=== PATIENT | female | born 1935 | race Caucasian/White ===

== ENCOUNTER 2020-05-08 21:52 | Inpatient (IN) | payer MEDICARE, MEDICAID, SELFPAY ==
--- NOTE | ~2020-05-08 | NM_ITS ---
EXAMINATION: NM pulmonary perfusion DATE: 05/09/2020 12:02 INDICATION: Shortness of breath. TECHNIQUE: 5.5 mCi Tc-99m MAA was administered intravenously for perfusion images. Scintigraphic nestor ges of the chest were obtained. COMPARISON: Chest single view 05/08/20 FINDINGS: Perfusion images show large defects throughout left lower lobe. There are large and moderate sized de fects in right lower lobe. IMPRESSION: 1. Nondiagnostic (intermediate probability for pulmonary embolism). Reviewed, dictated and finalized at location A. LY CHAIN ASSISTANT
--- NOTE | ~2020-05-08 | XR_ITS ---
EXAMINATION: XR chest 1V portable INDICATION: Shortness of breath TECHNIQUE: Portable AP chest at 2311 hours COMPARISON: None available FINDINGS: Airspace opacities are present in the left mid and lower lung zones. A small left pleural e ffusion is suggested. There is no pneumothorax. There are minimal right basilar airspace opacities. T he heart size is normal. 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 IMPRESSION: 1. Airspace opacities of the lung bases and left midlung zone, consistent with atelectasis versus pne umonia. 2. Small left pleural effusion. Reviewed, dictated and finalized at location A. RITY INCIDENT HANDLER IMPRESSION: 1. Airspace opacities of the lung bases and left midlung zone, consistent with atelectasis versus pneumonia. 2. Small left pleural effusion.
[2020-05-08 21:57] VITALS: BP 115/47; PULSE 75; RESP 18; TEMP 36.6; O2SAT 94
--- NOTE | 2020-05-08 22:05 | ECG_ITS ---
Measurements Intervals [place] Rate: 76 P: -47 DE: 158 QRS: -2 QRSD: 110 T: 28 QT: 412 QTc: 464 Interpretive Statements SINUS OR ECTOPIC ATRIAL RHYTHM INCOMPLETE RIGHT BUNDLE BRANCH BLOCK BORDERLINE ECG Electronically Signed On 05-09-2020 7:01:22 MANUFACTURING MACHINE OPERATOR by Avery Hall D.O.
--- NOTE | 2020-05-08 22:29 | ED.SOB ---
HPI - SOB/Dyspnea General Chief Complaint: Shortness of Breath/Dyspnea Stated Complaint: sob,cp Time Seen by Provider: 05/08/20 22:10 Source: patient Mode of arrival: ambulatory Limitations: no limitations History of Present Illness HPI Narrative: Patient is an 84-year-old female complaining of shortness of breath that started today. Patient also complained of chest tightness earlier but now resolved. Patient denies abdominal pain, nausea, vomiting, diarrhea, fever or chills. Review of Systems Review of Systems: All systems reviewed & are unremarkable except as noted in HPI and below Constitutional: Constitutional: Denies body ache(s), Denies chills, Denies excessive sweating, Denies fatigue, Denies fever(s), Denies headache(s), Denies lethargy, Denies malaise, Denies weakness and Denies weight loss Eyes: Eyes: Denies blurry vision, Denies change in vision and Denies loss of vision ENT: Denies dizziness, Denies ear discharge, Denies headache(s), Denies lip swelling, Denies epistaxis, Denies nasal congestion, Denies neck pain, Denies throat swelling and Denies tongue swelling Cardiovascular: Cardiovascular: Denies chest pain, Denies chest pain at rest, Denies chest pain with activity, Denies diaphoresis, Denies rapid heart rate, Denies edema, Denies irregular heart rhythm, Denies lightheadedness, Denies palpitations, Denies dyspnea and Denies dyspnea on exertion Respiratory: Respiratory: Denies chest congestion, Denies cough and Denies hemoptysis Gastrointestinal: Gastrointestinal: Denies abdominal pain, Denies melena, Denies hematochezia, Denies diarrhea, Denies nausea, Denies vomiting and Denies hematemesis Musculoskeletal: Musculoskeletal: Denies abnormal gait, Denies deformity, Denies joint swelling, Denies limited range of motion, Denies neck pain and Denies numbness Neurologic: Denies Abnormal speech present, Denies abnormal gait, Denies confusion, Denies dizziness, Denies headache(s), Denies focal weakness, Denies loss of vision, Denies numbness, Denies Other visual disturbances, Denies Sensory deficit (Neuro) and Denies weakness Psychiatric: Psychiatric: Denies confusion, Denies depression, Denies auditory hallucinations, Denies homicidal ideation and Denies suicidal ideation Endocrine: Endocrine: Denies cold intolerance, Denies excessive sweating, Denies fatigue, Denies heat intolerance and Denies palpitations Hematologic/Lymphatic: Hematologic/Lymphatic: Denies easy bleeding and Denies easy bruising Allergic/Immunologic: Allergic/Immunologic: Denies lip swelling, Denies throat swelling and Denies tongue swelling Exam Const: General: cooperative, comfortable, well developed, alert and awake; No confusion Orientation/consciousness: oriented to person, oriented to place, oriented to time, patient oriented x3 and No confusion Limitations: no limitations Other: Frail, moderate distress HENMT: Head: normal to inspection, normocephalic and atraumatic Ears: hearing grossly normal bilaterally, TM normal on the right and TM normal on the left General nose exam: Normal external nose present, Normal nares present and No nasal discharge present Face and sinus: normal facial exam Mouth: Yes Normal oral and palatal mucosa present, Yes lip normal, Yes tongue normal and Yes oropharynx normal Throat: posterior oropharynx normal, tonsils normal and uvula midline Eyes: General: appearance normal, both eyes and all related structures Pupils: Equal, round and reactive pupils present EOM: EOMs intact bilaterally Neck: Neck: normal visual inspection, full ROM, no lymphadenopathy and no meningeal signs Chest: Chest palpation & inspection: normal inspection of the chest Resp: Effort & Inspection: able to speak in complete sentences and tachypneic (Mild) Auscultation: rales, no rhonchi, no wheezes and diminished lung sounds Other: Mild respiratory distress, bibasilar Rales Cardio: Rate: regular rate Rhythm: regular rhythm Heart sounds: Murmur he
[2020-05-08 22:54] LABS: Alveolar/Arterial O2 Gradient 43.8 mmHg; Base Excess ABG -2.8 mEq/l (+/-2.0); Carboxyhemoglobin 1.4 % THb (0-2.0); Device ROOM AIR; Fractional Inspired Oxygen 21 %; HCO3 ABG 20.9 mEq/l (22.0-26.0); Methemoglobin ABG 0.3 %THb (0-1.5); Modified Allen's Test Pass; Oxygen Content ABG 10.7 %vol (16.0-22.0); Oxygen Saturation ABG 94.5 % (95.0-100.0); Oxyhemoglobin 92.4 % THb (90.0-100.0); PCO2 ABG 31.5 mmHg (35.0-45.0); PO2 ABG 68.2 mmHg (80.0-100.0); PO2 FiO2 Ratio Arterial Blood 3.25 %; Reduced Hemoglobin 5.9 %THb (0-5.0); Site Drawn LEFT RADIAL; Total Hemoglobin 8.2 g/dL (12.0-18.0); pH ABG 7.439 (7.350-7.450)
[2020-05-08 23:02] VITALS: BP 124/85; PULSE 74; RESP 22; O2SAT 93
[2020-05-08] MEDS: FUROSEMIDE INJ 40 MG/4 ML VIAL 20 MG IV PUSH (23:02)
[2020-05-08 23:03] LABS: Basophils Absolute Auto 0.1 K/mm3 (0.0-0.1); Basophils Percent Auto 0.8 % (0.2-1.2); Hematocrit 26.1 % (37.0-47.0); Hemoglobin 7.9 g/dL (12.0-15.0); Immature Granulocyte Absolute 0.12 K/mm3 (0.00-0.031); Immature Granulocyte Percent A 1.9 % (0-0.5); Lymphocytes Absolute Auto 0.73 K/mm3 (0.9-3.2); Lymphocytes Percent Auto 11.4 % (18.3-44.2); Mean Corpuscular HGB Conc 30.3 g/dl (32-36); Mean Corpuscular Hemoglobin 29.7 pg (26-34); Mean Corpuscular Volume 98.1 fl (80-100); Mean Platelet Volume 9.2 fl (7.4-10.4); Monocytes Absolute Auto 0.7 K/mm3 (0.1-0.6); Monocytes Percent Auto 11.3 % (2.6-8.5); Neutrophils Absolute Auto 4.8 K/mm3 (1.3-6.7); Neutrophils Percent Auto 74.6 % (45.5-73.1); Platelet Count Result 149 k/mm3 (150-375); Red Blood Count 2.66 M/mm3 (4.2-5.4); Red Cell Distribution Width 14.6 % (11.5-14.5); White Blood Count 6.4 K/mm3 (4.5-10.0)
[2020-05-08 23:13] LABS: Prothrombin Time 13.9 Seconds (11.1-14.7)
[2020-05-08 23:14] LABS: Partial Thromboplastin Time 26.9 SECONDS (22.3-36.8)
[2020-05-08 23:19] LABS: Alanine Aminotransferase 11 U/L (4-35); Albumin Level 2.4 g/dL (3.5-5.1); Alkaline Phosphatase 52 U/L (38-126); Anion Gap 7 mmol/L (8-16); Aspartate Amino Transferase 21 U/L (14-36); Bilirubin,Total 0.2 mg/dL (0.2-1.3); Blood Urea Nitrogen 41 mg/dL (7-17); Calcium 8.8 mg/dL (8.4-10.2); Carbon Dioxide 21 mmol/L (22-30); Chloride 108 mmol/L (98-107); Estimated CRCL calculation 12 ml/min; Estimated Glomerular Filt Rate 14; Glucose 92 mg/dL (65-105); Lactic Acid Reflex 1.2 mmol/L (0.7-2.1); Potassium 4.5 mmol/L (3.4-5.0); Sodium 136 mmol/L (137-145)
[2020-05-08 23:43] LABS: NT Pro B Type Natriuretic Pept 10800 PG/ML (5-100); Troponin I 0.174 ng/mL (0.000-0.034)
[2020-05-09] VITALS (14 sets, daily range): BP systolic 120–151; BP diastolic 45–66; PULSE 55–80; RESP 16–20; TEMP 36.4–36.9; O2SAT 94–99; BMI 33.3
[2020-05-09] MEDS: ASPIRIN 81 MG CHEWABLE TABLET 324 MG PO (01:15)
[2020-05-09] MEDS: HEPARIN SOD/D5W 100 UNITS/ML 25,000 UNITS/250 ML BAG 8 UNITS IV CONT ×2 (01:51→22:49)
--- NOTE | 2020-05-09 01:53 | PM.IMHP ---
H&P: HPI History of Present Illness Date/Time: 05/09/20 01:53 Chief Complaint: shortness of breath since yesterday Narrative: This is a pleasant 84 year old female with known history of previous pulmonary embolism on chronic coumadin therapy and HTN who presented to the hospital [facility] with a complaint of shortness of breath that started yesterday as well as a brief episode of left sided chest pain. She states her chest discomfort lasted about 20 seconds in duration. She has severe chronic lower extremity swelling which has not worsened recently. She denies any known history of heart failure. She denies any fever, chills, coughing, sore throat, wheezing, palpitations, abdominal pain, dysuria, hematuria, diarrhea or rectal bleeding. She believes she has been taking her coumadin as prescribed. [facility] found to have a subtherapeutic INR of 1.0. Her troponin was mildly elevated at 0.174. CXR demonstrated airspace opacities of the lung bases and left midlung zone and a small left pleural effusion. She was treated with IV antibiotics, lasix, and anticoagulated with IV heparin. Cardiology was consulted by ER provider. No other complaints tonight. Review of Systems Review of Systems: All systems reviewed & are unremarkable except as noted in HPI and below PMFSH Past Medical History Medical History (Updated 05/09/20 @ 05:44 by Simón Prado MD) Chronic anticoagulation H/O: HTN (hypertension) Pulmonary embolism Surgical History Surgical History (Updated 05/09/20 @ 02:06 by Simón Prado MD) History of cholecystectomy Family History Family History (Updated 05/09/20 @ 05:41 by Simón Prado MD) Other Heart disease Social History Social History Smoking status: Never smoker Alcohol intake: never Substance use: never Spiritual care concerns: No Meds Home Medications and Allergies Home Medications Medication Instructions Recorded Confirmed Type alprazolam 0.5 mg PO Q12H PRN 05/09/20 05/09/20 History amlodipine 10 mg PO DAILY 05/09/20 05/09/20 History cholecalciferol (vitamin D3) 25 mcg PO DAILY 05/09/20 05/09/20 History docusate sodium 100 mg PO BID 05/09/20 05/09/20 History doxazosin 4 mg PO HS 05/09/20 05/09/20 History furosemide [Lasix] 40 mg PO DAILY 05/09/20 05/09/20 History hydrochlorothiazide 50 mg PO TID 05/09/20 05/09/20 History hydrocodone-acetaminophen 1 tablet PO Q8H PRN 05/09/20 05/09/20 History hydroxychloroquine 200 mg PO BID 05/09/20 05/09/20 History leflunomide 10 mg PO DAILY 05/09/20 05/09/20 History lidocaine [Lidoderm] 3 patch TOPICAL DAILY 05/09/20 05/09/20 History melatonin 5 mg PO HS PRN 05/09/20 05/09/20 History polysaccharide iron complex 150 mg PO DAILY 05/09/20 05/09/20 History [Polysaccharide Iron] sevelamer carbonate 800 mg PO TIDWM 05/09/20 05/09/20 History Allergies Allergy/AdvReac Type Severity Reaction Status Date / Time morphine AdvReac Unknown Verified 05/09/20 01:06 Vital Signs Vital Signs - 24 hr 05/08/20 21:57 05/08/20 23:02 05/09/20 01:08 Temperature 36.6 C Pulse Rate 75 74 70 Respiratory Rate 18 22 H 18 Blood Pressure 115/47 L 124/85 141/49 H Pulse Oximetry 94 93 95 Exam Const: General: cooperative, alert, awake and ill appearing chronically Nutritional Appearance: obese morbidly obese Orientation/consciousness: patient oriented x3 HENMT: Head: normal to inspection General nose exam: Normal external nose present Face and sinus: normal facial exam Mouth: Yes Normal oral and palatal mucosa present and Yes oropharynx normal Eyes: Pupils: Equal, round and reactive pupils present EOM: EOMs intact bilaterally Neck: Neck: supple and no JVD Thyroid: thyroid normal Lymphatic: lymphadenopathy not noted Resp: Effort & Inspection: normal respiratory effort Auscultation: crackles bilateral Cardio: Rate: regular rate Rhythm: regular rhythm He
--- NOTE | 2020-05-09 02:13 | ECHO_ITS ---
Patient Info Name: Hallie Cooper Age: 84 years : 1935 Gender: Female Ht: 64 in Wt: 169 lbs BSA: 1.88 m2 HR: 60 bpm BP: 151 / 58 mmHg Heart Rhythm: Sinus Rhythm Technical Quality: Good Exam Date: 05/09/2020 8:37 AM Exam Location: [facility] Pulmonary Patient Status: Inpatient Admit Date: 05/09/2020 Staff Ordering Physician: Simón Prado MD Coal Yard Supervisor: Seymour Meyers, JONATHAN, RT Attending Provider: Simón Prado MD Referring Physician: Johan RUBIO; Exam Type: CA echo doppler color flow Study Info Indications R07.89 - Other chest pain Complete two-dimensional, color flow and Doppler transthoracic echocardiogram is performed. Strain analysis performed. Summary 1. Complete two-dimensional, color flow and Doppler transthoracic echocardiogram is performed. 2. Normal left ventricular size with mild concentric hypertrophy. There is good systolic function of all segments with an estimated ejection fraction of 65-70%. Grade 2 diastolic dysfunction is present. Global longitudinal strain is normal at-20%. 3. Left atrial chamber dimension is moderately enlarged. 4. There is severe aortic valve stenosis with a peak velocity of 4 cm/s, mean gradient of 37 mmHg, and aortic valve area of 0.7 - 0.8 cm2. AVAI is 0.4-0.5 c2/m2. Severely calcified aortic valve. 5. There is moderate somewhat eccentric mitral valve regurgitation. 6. There is mild aortic atherosclerosis. 7. Normal sinus rhythm. Left Ventricle Left ventricular chamber dimension is normal. Left ventricular systolic function is normal, estimated at 65-70%. There is no increased left ventricular wall thickness. Left ventricular septal wall motion is normal. The left ventricular diastolic function is grade II diastolic dysfunction. Global longitudinal strain is normal at 20 %. Right Ventricle Right ventricular chamber dimension is normal. Right ventricular systolic function is normal. Left Atria Left atrial chamber dimension is moderately enlarged. Right Atria Right atrial chamber dimension is normal. Aortic Valve The aortic valve is trileaflet. There is no aortic valve sclerosis. There is severe aortic valve stenosis with a peak velocity of 4 cm/s, mean gradient of 37 mmHg, and aortic valve area of 0.7 - 0.8 cm2. AVAI is 0.4-0.5 c2/m2. Severely calcified aortic valve. There is no aortic valve regurgitation. There is severe aortic valve calcification. Pulmonic Valve The pulmonic valve is normal. There is no pulmonic valve stenosis. There is no pulmonic regurgitation. Mitral Valve The mitral valve has calcified annulus. There is no mitral valve stenosis. There is moderate somewhat eccentric mitral valve regurgitation. Tricuspid Valve The tricuspid valve leaflets are normal. There is no significant tricuspid valve stenosis. There is no tricuspid valve regurgitation. No pulmonary hypertension, estimated pulmonary arterial systolic pressure is Empty. Pericardium/Pleural The pericardium appears normal. There is no pericardial effusion. Inferior Vena Cava Dilated inferior vena cava with <50% collapse upon inspiration consistent with Empty right atrial pressure, Empty. Aorta The aortic root size at the sinus of Valsalva is normal. The prox ascending aorta size is normal. There is mild aortic atherosclerosis. Left Ventricular Outflow Tract Name Value Normal
[2020-05-09 03:15] LABS: Troponin I 0.175 ng/mL (0.000-0.034)
[2020-05-09 03:29] LABS: Add Urine Microscopic? YES; Appearance Urine Turbid (Clear); Bacteria Urine 1+ /hpf; Bilirubin Urine Negative (Negative); Blood Urine 1+ (Negative); Color Urine Yellow (Yellow); Glucose Urine UA Negative (Negative); Ketones Urine Negative (Negative); Leukocyte Esterase Ur 3+ LEU/UL (Negative); Nitrate Urine Negative (Negative); Protein Urine 1+ mg/dL (Negative); RBC Urine 21-50 /hpf (0-2); Specific Grav Ur 1.009 (1.001-1.035); Squamous Epithelial Cell Urine Occasional /hpf (Few); Urobilinogen Urine Negative mg/dL (<2.0); WBC Urine >75 /hpf
[2020-05-09 05:07] LABS: Anion Gap 1 mmol/L (8-16); Blood Urea Nitrogen 41 mg/dL (7-17); Calcium 8.8 mg/dL (8.4-10.2); Carbon Dioxide 25 mmol/L (22-30); Chloride 109 mmol/L (98-107); Estimated CRCL calculation 15 ml/min; Estimated Glomerular Filt Rate 15; Glucose 83 mg/dL (65-105); Magnesium 1.8 mg/dL (1.6-2.3); Potassium 4.5 mmol/L (3.4-5.0); Sodium 135 mmol/L (137-145)
[2020-05-09 05:23] LABS: Troponin I 0.176 ng/mL (0.000-0.034)
[2020-05-09] MEDS: HYDROcodone/acetaminophen (*CRX) 5-325 MG TABLET 1 TAB PO ×3 (05:30→21:47)
--- NOTE | 2020-05-09 05:45 | ECG_ITS ---
Measurements Intervals [place] Rate: 60 P: -81 [place]: 187 QRS: 5 QRSD: 114 T: 22 QT: 483 QTc: 484 Interpretive Statements SINUS OR ECTOPIC ATRIAL RHYTHM INCOMPLETE RIGHT BUNDLE BRANCH BLOCK BORDERLINE ECG Electronically Signed On 05-09-2020 10:19:02 KETTLE GIRL by Avery Hall D.O.
[2020-05-09] MEDS: DOCUSATE SODIUM 100 MG CAPSULE PO ×2 (08:14→17:32)
[2020-05-09] MEDS: amLODIPine BESYLATE 5 MG TABLET 10 MG PO (08:14)
[2020-05-09] MEDS: CHOLECALCIFEROL 1,000 UNITS TABLET 1000 UNITS PO (08:14)
[2020-05-09] MEDS: FUROSEMIDE INJ 40 MG/4 ML VIAL IV PUSH ×2 (08:15→17:32)
[2020-05-09 08:30] LABS: Partial Thromboplastin Time 58.7 SECONDS (22.3-36.8)
[2020-05-09] MEDS: HEPARIN SODIUM 5,000 UNITS/ML VIAL 2500 UNITS IV PUSH (08:37)
--- NOTE | 2020-05-09 08:39 | PM.CNCAR ---
Assessment and Plan Assessment and plan (1) Acute diastolic CHF (congestive heart failure): Code(s): I50.31 - Acute diastolic (congestive) heart failure Status: Acute Assessment and Plan: Patient has acute CHF due to diastolic dysfunction, fluid retention from chronic kidney disease and probably also severe aortic stenosis. History of CHF and was hospitalized in March 2020 at [facility]. IV Lasix 40 mg b.i.d. Close follow-up of renal function The ultimate solution for her heart failure may be treatment of her aortic stenosis, but that would likely put her on dialysis. Discussed briefly with the patient and the patient's son. Since she has expressed that she does not want any procedures and is a DNR we will not proceed down that path at this time. (2) Chest pain: Qualifiers: Chest pain type: unspecified Qualified Code(s): R07.9 - Chest pain, unspecified Code(s): R07.9 - Chest pain, unspecified Status: Acute Assessment and Plan: Apparently patient has been transient chest pain which she cannot recall. EKG shows no ischemic changes. Troponins are flat, consistent with chronic kidney disease and CHF not with ACS. No further workup of chest pain indicated (3) Aortic stenosis: Code(s): I35.0 - Nonrheumatic aortic (valve) stenosis Status: Acute Assessment and Plan: History of moderate aortic stenosis when seen at [facility] although our preliminary echo report here shows more significant aortic stenosis, probably severe. Final report pending. (4) Chronic kidney disease: Code(s): N18.9 - Chronic kidney disease, unspecified Status: Acute Assessment and Plan: Chronic kidney disease, stage IV. Creatinine is at baseline (was running about 3.0 -3.1 at [facility]. 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 Daily BMP (5) Elevated troponin: Code(s): R77.8 - Other specified abnormalities of plasma proteins Status: Acute Assessment and Plan: Elevated troponin but flat curve, consistent with a troponin spill due to her CHF and chronic kidney disease, no ACS. 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 Will DC her heparin drip and provide her with Lovenox for DVT prophylaxis during her stay. (7) Anemia: Code(s): D64.9 - Anemia, unspecified Status: Acute Assessment and Plan: Anemia, at baseline, secondary to chronic kidney disease (8) H/O: HTN (hypertension): Code(s): Z86.79 - Personal history of other diseases of the circulatory system Status: Chronic Assessment and Plan: Mildly elevated blood pressure noted on therapy (9) DNR (do not resuscitate) discussion: Code(s): Z71.89 - Other specified counseling Status: Acute Assessment and Plan: The patient has a signed order for DNR status from her care home. She confirms that she does not want resuscitation. She also says she does not want any procedures and prefers no surgeries. The patient's son, Karthikkim, confirms that she is a DNR. He also says she does not want to be put on dialysis. She had an EGD done a few months ago and she does not want to have anymore procedures such as an EGD done in the future. Thus I will continue her DNR status. History of Present Illness History of Present Illness Consult date/time: 05/09/20 08:39 Requesting p
[2020-05-09 09:03] LABS: Troponin I 0.177 ng/mL (0.000-0.034)
[2020-05-09] MEDS: hydrALAZINE HCL 50 MG TABLET PO ×2 (12:37→17:32)
--- NOTE | 2020-05-09 13:32 | PM.IMPN ---
Progress Note: A&P Assessment and Plan (1) Acute respiratory failure with hypoxia: Code(s): J96.01 - Acute respiratory failure with hypoxia Status: Acute Assessment and Plan: Patient's acute respiratory failure appears to be secondary to acute heart failure exacerbation. Rule out possible left lower lung pneumonia versus pleural effusion. Patient has been started on IV antibiotics, deescalate when appropriate. Continue Lasix therapy. Monitor fluid status closely. Check TSH reflex T4, check echocardiogram. we will also check a V/Q scan as the patient may have a recurrent pulmonary embolism given that she is subtherapeutic. Continuous pulse oximetry. Supplemental oxygen as needed. 05/09/20 13:32 84-year-old female original residential was sent to emergency department with a complaint of chest pain and shortness of breath, history of pulmonary emboli chronically on Coumadin however upon arrival her INR is subtherapeutic to 1, patient started on heparin to bridge, a V/Q scan was done showed intermediate probability of pulmonary emboli, patient remains clinically stable, patient also had elevated tropes, patient was seen by cut tobacco bulker and suspect patient has CHF secondary to aortic stenosis, patient does not wish to have any procedure done including cardiac catheterization to further evaluate, cut tobacco bulker recommending maximum medical management, will continue to monitor and further recommendation to follow will have a PT OT evaluate the patient (2) Subtherapeutic anticoagulation: Code(s): Z51.81 - Encounter for therapeutic drug level monitoring; Z79.01 - equipment operator intermodal yard (current) use of anticoagulants Status: Acute Assessment and Plan: Continue IV heparin. Monitor PT INR. Continue Coumadin therapy and adjust accordingly. (3) Chest pain: Qualifiers: Chest pain type: unspecified Qualified Code(s): R07.9 - Chest pain, unspecified Code(s): R07.9 - Chest pain, unspecified Status: Acute Assessment and Plan: One brief episode of chest pain likely is not cardiac in origin. Cardiology has been consulted because she also had an elevated troponin. telemetry, monitor for chest pain, Recheck EKG. Continue cardiology recommendations. (4) Elevated troponin: Code(s): R77.8 - Other specified abnormalities of plasma proteins Status: Acute Assessment and Plan: Troponin leak may be secondary to acute coronary syndrome, acute renal failure, or heart failure. Trend troponin. Monitor for chest pain. Cardiology has been consulted by ER provider. Appreciate cardiology input. (5) Renal failure: Qualifiers: Renal failure chronicity: unspecified chronicity Qualified Code(s): N19 - Unspecified kidney failure Code(s): N19 - Unspecified kidney failure Status: Acute Assessment and Plan: May be acute versus chronic. May be secondary to hypoperfusion. Monitor renal function, avoid nephrotoxin agents. Renally dose medications. Monitor urine output. Consider Nephrology consultation in a.m.. (6) Normocytic anemia: Code(s): D64.9 - Anemia, unspecified Status: Acute Assessment and Plan: May be acute versus chronic anemia. No signs of acute blood loss. Monitor H&H, transfuse p.r.n.. (7) Thrombocytopenia: Code(s): D69.6 - Thrombocytopenia, unspecified Status: Acute Assessment and Plan: May be acute versus chronic. Monitor platelets, transfuse p.r.n.. (8) H/O: HTN (hypertension): Code(s): Z86.79 - Personal history of other diseases of the circulatory system Status: Chronic Assessment and Plan: Monitor blood pressure. Continue home amlodipine. Subjective Date/time seen: 05/09/20 13:32 84-year-old female original residential was sent to emergency department with a complaint of chest pain and shortness of breath, history of pulmonary emboli chronically on Coumadin however upon ar
[2020-05-09] MEDS: HYDROXYCHLOROQUINE SULFATE 200 MG TABLET PO (17:32)
[2020-05-09] MEDS: SEVELAMER CARBONATE 800 MG TABLET PO (17:33)
[2020-05-09] MEDS: POLYSACCHARIDE IRON COMPLEX 150 MG CAPSULE PO (17:33)
[2020-05-09] MEDS: ALPRAZolam (*CRX) 0.5 MG TABLET PO (17:52)
--- NOTE | 2020-05-09 17:54 | ECG_ITS ---
Measurements Intervals [place] Rate: 58 P: ID: 0 QRS: 2 QRSD: 113 T: 16 QT: 474 QTc: 468 Interpretive Statements ECTOPIC ATRIAL BRADYCARDIA ATRIAL PREMATURE COMPLEX INCOMPLETE RIGHT BUNDLE BRANCH BLOCK BORDERLINE R WAVE PROGRESSION, ANTERIOR LEADS ABNORMAL ECG Electronically Signed On 05-10-2020 7:09:42 THERAPEUTIC PROGRAM WORKER by Avery Hall D.O.
--- NOTE | 2020-05-09 18:07 | PC.NURSE ---
Pt complained of shortness of breath after eating dinner. Pt was given 40mg IVP of Lasix as scheduled. About 5 minutes later patient called out stating I'm having chest pain. It hurts really bad. It feels achy and stabbing, right here in the middle. Pt given [place] and Xanax. Notified cancer center director of patient's condition. Suggested obtain 12 lead EKG. EKG shows AFib with slow ventricular response, possible anterlateral myocardial infarction, probably old. Pt stated pain is feeling better. Notified Dr. Butcher of situation and EKG readings as well as current patient status. No new orders at this time. continue to monitor. Notify if patient has any increasing chest pain with EKG changes.
[2020-05-09] MEDS: DOXAZOSIN MESYLATE 4 MG TABLET PO (19:50)
[2020-05-09] MEDS: MELATONIN 5 MG TABLET PO (19:50)
[2020-05-09] MEDS: ACETAMINOPHEN 325 MG TABLET 650 MG PO (19:50)
[2020-05-09 21:31] LABS: Partial Thromboplastin Time 84.3 SECONDS (22.3-36.8)
[2020-05-10] VITALS (8 sets, daily range): BP systolic 102–130; BP diastolic 43–64; PULSE 52–58; RESP 16–20; TEMP 36–36.9; O2SAT 96–100
[2020-05-10] MEDS: HYDROcodone/acetaminophen (*CRX) 5-325 MG TABLET 1 TAB PO ×2 (04:46→16:26)
[2020-05-10 05:19] LABS: Basophils Absolute Auto 0.1 K/mm3 (0.0-0.1); Basophils Percent Auto 1.1 % (0.2-1.2); Hematocrit 24.2 % (37.0-47.0); Hemoglobin 7.3 g/dL (12.0-15.0); Immature Granulocyte Absolute 0.21 K/mm3 (0.00-0.031); Immature Granulocyte Percent A 4.4 % (0-0.5); Lymphocytes Absolute Auto 1.15 K/mm3 (0.9-3.2); Lymphocytes Percent Auto 24.2 % (18.3-44.2); Mean Corpuscular HGB Conc 30.2 g/dl (32-36); Mean Corpuscular Volume 99.6 fl (80-100); Mean Platelet Volume 10.2 fl (7.4-10.4); Monocytes Absolute Auto 0.8 K/mm3 (0.1-0.6); Neutrophils Absolute Auto 2.6 K/mm3 (1.3-6.7); Neutrophils Percent Auto 54.3 % (45.5-73.1); Platelet Count Result 141 k/mm3 (150-375); Red Blood Count 2.43 M/mm3 (4.2-5.4); Red Cell Distribution Width 14.5 % (11.5-14.5); White Blood Count 4.8 K/mm3 (4.5-10.0)
[2020-05-10 05:32] LABS: INR 1.1; Prothrombin Time 14.6 Seconds (11.1-14.7)
[2020-05-10 05:34] LABS: Partial Thromboplastin Time 84.5 SECONDS (22.3-36.8)
[2020-05-10 05:35] LABS: Anion Gap 1 mmol/L (8-16); Blood Urea Nitrogen 46 mg/dL (7-17); Calcium 8.7 mg/dL (8.4-10.2); Carbon Dioxide 24 mmol/L (22-30); Chloride 109 mmol/L (98-107); Estimated CRCL calculation 15 ml/min; Estimated Glomerular Filt Rate 14; Glucose 76 mg/dL (65-105); Potassium 4.6 mmol/L (3.4-5.0); Sodium 134 mmol/L (137-145)
[2020-05-10] MEDS: hydrALAZINE HCL 50 MG TABLET PO ×2 (08:04→12:55)
[2020-05-10] MEDS: CHOLECALCIFEROL 1,000 UNITS TABLET 1000 UNITS PO (08:04)
[2020-05-10] MEDS: amLODIPine BESYLATE 5 MG TABLET 10 MG PO (08:04)
[2020-05-10] MEDS: POLYSACCHARIDE IRON COMPLEX 150 MG CAPSULE PO ×2 (08:04→16:27)
[2020-05-10] MEDS: DOCUSATE SODIUM 100 MG CAPSULE PO ×2 (08:04→16:26)
[2020-05-10] MEDS: HYDROXYCHLOROQUINE SULFATE 200 MG TABLET PO ×2 (08:04→16:26)
[2020-05-10] MEDS: SEVELAMER CARBONATE 800 MG TABLET PO ×3 (08:04→16:27)
[2020-05-10] MEDS: FUROSEMIDE INJ 40 MG/4 ML VIAL IV PUSH ×2 (08:04→16:26)
[2020-05-10] MEDS: LIDOCAINE 5% PATCH 3 PATCH TOPICAL (08:05)
--- NOTE | 2020-05-10 14:26 | PM.IMPN ---
Progress Note: A&P Assessment and Plan (1) Acute respiratory failure with hypoxia: Code(s): J96.01 - Acute respiratory failure with hypoxia Status: Acute Assessment and Plan: 05/10/20 14:26 Patient's acute respiratory failure appears to be secondary to acute heart failure exacerbation. Rule out possible left lower lung pneumonia versus pleural effusion. Patient has been started on IV antibiotics, deescalate when appropriate. Continue Lasix therapy. Monitor fluid status closely. Check TSH reflex T4, check echocardiogram. we will also check a V/Q scan as the patient may have a recurrent pulmonary embolism given that she is subtherapeutic. Continuous pulse oximetry. Supplemental oxygen as needed. 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 however upon arrival her INR is subtherapeutic to 1, patient started on heparin to bridge, a V/Q scan was done showed intermediate probability of pulmonary emboli, patient remains clinically stable, patient also had elevated tropes, patient was seen by enrichment teacher and suspect patient has CHF secondary to aortic stenosis, patient does not wish to have any procedure done including cardiac catheterization to further evaluate, enrichment teacher recommending maximum medical management, will continue to monitor and further recommendation to follow will have a PT OT evaluate the patient, 05/10 84-year-old female with history of pulmonary emboli on warfarin however presented with a complaint of chest pain and shortness of breath her INR was subtherapeutic at 1, patient is placed on heparin, will switch her over to either Eliquis or Xarelto before discharging, patient with complaint of chest an elevated tropes seen by enrichment teacher suspect her symptoms are stemming from aortic stenosis, patient does not want any invasive procedures including cardiac catheterization, will continue to monitor the patient had PT OT evaluate and further recommendation to follow. (2) Subtherapeutic anticoagulation: Code(s): Z51.81 - Encounter for therapeutic drug level monitoring; Z79.01 - [facility] (current) use of anticoagulants Status: Acute Assessment and Plan: Continue IV heparin. Monitor PT INR. Continue Coumadin therapy and adjust accordingly. (3) Chest pain: Qualifiers: Chest pain type: unspecified Qualified Code(s): R07.9 - Chest pain, unspecified Code(s): R07.9 - Chest pain, unspecified Status: Acute Assessment and Plan: One brief episode of chest pain likely is not cardiac in origin. Cardiology has been consulted because she also had an elevated troponin. telemetry, monitor for chest pain, Recheck EKG. Continue cardiology recommendations. (4) Elevated troponin: Code(s): R77.8 - Other specified abnormalities of plasma proteins Status: Acute Assessment and Plan: Troponin leak may be secondary to acute coronary syndrome, acute renal failure, or heart failure. Trend troponin. Monitor for chest pain. Cardiology has been consulted by ER provider. Appreciate cardiology input. (5) Renal failure: Qualifiers: Renal failure chronicity: unspecified chronicity Qualified Code(s): N19 - Unspecified kidney failure Code(s): N19 - Unspecified kidney failure Status: Acute Assessment and Plan: May be acute versus chronic. May be secondary to hypoperfusion. Monitor renal function, avoid nephrotoxin agents. Renally dose medications. Monitor urine output. Consider Nephrology consultation in a.m.. (6) Normocytic anemia: Code(s): D64.9 - Anemia, unspecified Status: Acute Assessment and Plan: May be acute versus chronic anemia. No signs of acute blood loss. Monitor H&H, transfuse p.r.n.. (7) Thrombocytopenia: Code(s): D69.6 - Thrombocytopen
--- NOTE | 2020-05-10 17:35 | PC.NURSE ---
Patient downgraded to medical status, report given to KIKE Anton. Transferred patient to room 255 at 1730 via bed with oxygen on.
--- NOTE | 2020-05-10 18:14 | PM.PNCARD ---
Progress Note: A&P Assessment and Plan (1) Acute diastolic CHF (congestive heart failure): Code(s): I50.31 - Acute diastolic (congestive) heart failure Status: Acute Assessment and Plan: Patient has acute CHF due to diastolic dysfunction, fluid retention from chronic kidney disease and severe aortic stenosis. History of CHF and was hospitalized in March [address] [facility]. IV Lasix 40 mg b.i.d. Edema has improved and she is diuresing with stable renal function so far. Close follow-up of renal function The ultimate solution for her heart failure may be treatment of her aortic stenosis with TAVR, but that would likely put her on dialysis. Discussed with the patient and yesterday with the patient's son. Since she has expressed that she does not want any procedures and is a DNR we will not proceed down that path at this time. However she has progressive diseases and if she can get to this episode of CHF will have relapses, ultimately terminal. Palliative care consult? (2) Chest pain: Qualifiers: Chest pain type: unspecified Qualified Code(s): R07.9 - Chest pain, unspecified Code(s): R07.9 - Chest pain, unspecified Status: Acute Assessment and Plan: Apparently patient has been transient chest pain which she cannot recall. EKG shows no ischemic changes. Troponins are Mildly elevated but flat, consistent with chronic kidney disease and CHF not with ACS. No further workup of chest pain indicated (3) Aortic stenosis: Code(s): I35.0 - Nonrheumatic aortic (valve) stenosis Status: Acute Assessment and Plan: Severe aortic stenosis. Patient has said she does not want any more procedures and does not to be on dialysis. (4) Chronic kidney disease: Code(s): N18.9 - Chronic kidney disease, unspecified Status: Acute Assessment and Plan: Chronic kidney disease, stage IV. Creatinine is at baseline (was running about 3.0 -3.[address] [facility]. 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 So far renal function is stable. 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 V/Q scan was indeterminate. I recommend discontinuing her heparin drip and provide her with Lovenox for DVT prophylaxis during her stay. (6) Anemia: Code(s): D64.9 - Anemia, unspecified Status: Acute Assessment and Plan: Anemia, at baseline, secondary to chronic kidney disease . Somewhat worse on heparin drip. (7) H/O: HTN (hypertension): Code(s): Z86.79 - Personal history of other diseases of the circulatory system Status: Chronic Assessment and Plan: Mildly elevated blood pressure noted on therapy Subjective Date/time seen: 05/10/20 18:14 Interval history: Follow-up for acute diastolic heart failure, severe aortic stenosis. Stage 5 chronic kidney disease. DNR. Date of service 05/10/2020: Breathing is better but still has SOB with mild exertion. Modest diuresis. Down To 1.5 L nasal cannula. Hematocrit also down to 24. Remains on heparin drip. Echo showed EF 65-70%, and severe aortic stenosis with the valve area of 0.7-0.8 cm2 and a mean gradient of 37 mmHg. Review of Systems Constitutional: Constitutional: Reports fatigue and Reports lethargy ENT: Denies epistaxis Cardiovascular: Cardiovascular: Denies chest pain, Reports leg edema and Denies palpitations Respiratory: Respiratory: Reports dyspnea and Reports dyspnea on exertion Gastrointestinal: Gastrointestinal: Denies hem
[2020-05-10] MEDS: MELATONIN 5 MG TABLET PO (20:21)
[2020-05-10] MEDS: DOXAZOSIN MESYLATE 4 MG TABLET PO (20:21)
[2020-05-11] VITALS (7 sets, daily range): BP systolic 110–149; BP diastolic 42–66; PULSE 55–96; RESP 16–18; TEMP 36.3–36.4; O2SAT 94–99
[2020-05-11] MEDS: HYDROcodone/acetaminophen (*CRX) 5-325 MG TABLET 1 TAB PO ×2 (02:11→17:16)
[2020-05-11] MEDS: HEPARIN SOD/D5W 100 UNITS/ML 25,000 UNITS/250 ML BAG 8 UNITS IV CONT (05:58)
[2020-05-11 06:17] LABS: Hematocrit 23.8 % (37.0-47.0); Hemoglobin 7.3 g/dL (12.0-15.0); Mean Corpuscular HGB Conc 30.7 g/dl (32-36); Mean Corpuscular Hemoglobin 29.8 pg (26-34); Mean Corpuscular Volume 97.1 fl (80-100); Mean Platelet Volume 10.1 fl (7.4-10.4); Platelet Count Result 152 k/mm3 (150-375); Red Blood Count 2.45 M/mm3 (4.2-5.4); Red Cell Distribution Width 14.4 % (11.5-14.5); White Blood Count 4.9 K/mm3 (4.5-10.0)
[2020-05-11 06:30] LABS: Partial Thromboplastin Time 75.3 SECONDS (22.3-36.8)
[2020-05-11 06:47] LABS: Anion Gap 2 mmol/L (8-16); Blood Urea Nitrogen 47 mg/dL (7-17); Calcium 9.2 mg/dL (8.4-10.2); Carbon Dioxide 24 mmol/L (22-30); Chloride 109 mmol/L (98-107); Estimated CRCL calculation 14 ml/min; Estimated Glomerular Filt Rate 14; Glucose 78 mg/dL (65-105); Potassium 4.6 mmol/L (3.4-5.0); Sodium 135 mmol/L (137-145)
[2020-05-11] MEDS: DOCUSATE SODIUM 100 MG CAPSULE PO (09:02)
[2020-05-11] MEDS: FUROSEMIDE INJ 40 MG/4 ML VIAL IV PUSH ×2 (09:03→18:22)
[2020-05-11] MEDS: LIDOCAINE 5% PATCH 3 PATCH TOPICAL (09:04)
--- NOTE | 2020-05-11 11:59 | PM.DS ---
DS: Admitting Diagnosis Admitting Diagnosis Admitting Diagnosis: Chief Complaint: shortness of breath since yesterday DS: Discharge Diagnosis Discharge Diagnosis (1) Aortic stenosis: Code(s): I35.0 - Nonrheumatic aortic (valve) stenosis Status: Acute (2) Acute respiratory failure with hypoxia: Code(s): J96.01 - Acute respiratory failure with hypoxia Status: Acute Assessment and Plan: 05/10/20 14:26 Patient's acute respiratory failure appears to be secondary to acute heart failure exacerbation. Rule out possible left lower lung pneumonia versus pleural effusion. Patient has been started on IV antibiotics, deescalate when appropriate. Continue Lasix therapy. Monitor fluid status closely. Check TSH reflex T4, check echocardiogram. we will also check a V/Q scan as the patient may have a recurrent pulmonary embolism given that she is subtherapeutic. Continuous pulse oximetry. Supplemental oxygen as needed. 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 however upon arrival her INR is subtherapeutic to 1, patient started on heparin to bridge, a V/Q scan was done showed intermediate probability of pulmonary emboli, patient remains clinically stable, patient also had elevated tropes, patient was seen by core driller and suspect patient has CHF secondary to aortic stenosis, patient does not wish to have any procedure done including cardiac catheterization to further evaluate, core driller recommending maximum medical management, will continue to monitor and further recommendation to follow will have a PT OT evaluate the patient, 05/10 84-year-old female with history of pulmonary emboli on warfarin however presented with a complaint of chest pain and shortness of breath her INR was subtherapeutic at 1, patient is placed on heparin, will switch her over to either Eliquis or Xarelto before discharging, patient with complaint of chest an elevated tropes seen by core driller suspect her symptoms are stemming from aortic stenosis, patient does not want any invasive procedures including cardiac catheterization, will continue to monitor the patient had PT OT evaluate and further recommendation to follow. (3) Subtherapeutic anticoagulation: Code(s): Z51.81 - Encounter for therapeutic drug level monitoring; Z79.01 - [facility] (current) use of anticoagulants Status: Acute Assessment and Plan: Continue IV heparin. Monitor PT INR. Continue Coumadin therapy and adjust accordingly. (4) Chest pain: Qualifiers: Chest pain type: unspecified Qualified Code(s): R07.9 - Chest pain, unspecified Code(s): R07.9 - Chest pain, unspecified Status: Acute Assessment and Plan: One brief episode of chest pain likely is not cardiac in origin. Cardiology has been consulted because she also had an elevated troponin. telemetry, monitor for chest pain, Recheck EKG. Continue cardiology recommendations. (5) Elevated troponin: Code(s): R77.8 - Other specified abnormalities of plasma proteins Status: Acute Assessment and Plan: Troponin leak may be secondary to acute coronary syndrome, acute renal failure, or heart failure. Trend troponin. Monitor for chest pain. Cardiology has been consulted by ER provider. Appreciate cardiology input. (6) Renal failure: Qualifiers: Renal failure chronicity: unspecified chronicity Qualified Code(s): N19 - Unspecified kidney failure Code(s): N19 - Unspecified kidney failure Status: Acute Assessment and Plan: May be acute versus chronic. May be secondary to hypoperfusion. Monitor renal function, avoid nephrotoxin agents. Renally dose medications. Monitor urine output. Consider Nephrology consultation in a.m.. (7) Normocytic anemia: Code(s): D64.9 - A
[2020-05-11] MEDS: HYDROXYCHLOROQUINE SULFATE 200 MG TABLET PO (18:22)
[2020-05-11] MEDS: ALPRAZolam (*CRX) 0.5 MG TABLET PO (20:35)
[2020-05-11] MEDS: ACETAMINOPHEN 325 MG TABLET 650 MG PO (20:36)
[2020-05-11] MEDS: DOXAZOSIN MESYLATE 4 MG TABLET PO (20:37)
[2020-05-11] MEDS: MELATONIN 5 MG TABLET PO (20:38)
[2020-05-12] MEDS: HYDROcodone/acetaminophen (*CRX) 5-325 MG TABLET 1 TAB PO ×2 (01:10→12:27)
[2020-05-12 05:24] VITALS: BP 119/50; PULSE 88; RESP 18; TEMP 36.4; O2SAT 97
[2020-05-12 08:00] VITALS: O2SAT 97
[2020-05-12 08:28] LABS: SARS-CoV-2 RNA PCR Negative
[2020-05-12] MEDS: hydrALAZINE HCL 50 MG TABLET PO ×2 (09:14→11:58)
[2020-05-12] MEDS: POLYSACCHARIDE IRON COMPLEX 150 MG CAPSULE PO (09:14)
[2020-05-12] MEDS: amLODIPine BESYLATE 5 MG TABLET 10 MG PO (09:14)
[2020-05-12] MEDS: SEVELAMER CARBONATE 800 MG TABLET PO ×2 (09:14→11:58)
[2020-05-12] MEDS: CHOLECALCIFEROL 1,000 UNITS TABLET 1000 UNITS PO (09:15)
[2020-05-12] MEDS: FUROSEMIDE INJ 40 MG/4 ML VIAL IV PUSH (09:15)
[2020-05-12] MEDS: LIDOCAINE 5% PATCH 3 PATCH TOPICAL (09:15)
[2020-05-12] MEDS: DOCUSATE SODIUM 100 MG CAPSULE PO (09:15)
[2020-05-12] MEDS: HYDROXYCHLOROQUINE SULFATE 200 MG TABLET PO (09:15)
== END 2020-05-12 12:44 | DRG 306 ==
LOC: ANHED 05-09 00:24 → ANHIMU 05-10 01:33 → ANH2MED 05-11 11:59 → ANHIMU 05-16 14:14
PROVIDERS: Admitting Provider Family Medicine; Emergency Provider Emergency Medicine; PCP Family Medicine; Visit Provider Family Medicine
DX: I35.0 Nonrheumatic aortic (valve) stenosis (principal); J96.01 Acute respiratory failure with hypoxia; I50.31 Acute diastolic (congestive) heart failure; I13.0 Hypertensive heart and chronic kidney disease with heart failure and stage 1 through stage 4 chronic kidney disease, or unspecified chronic kidney disease; N18.4 Chronic kidney disease, stage 4 (severe); Z20.822 Contact with and (suspected) exposure to COVID-19; R07.89 Other chest pain; D63.1 Anemia in chronic kidney disease; R77.8 Other specified abnormalities of plasma proteins; D69.6 Thrombocytopenia, unspecified; M06.9 Rheumatoid arthritis, unspecified; R29.6 Repeated falls; Z66 Do not resuscitate; Z28.21 Immunization not carried out because of patient refusal; Z86.711 Personal history of pulmonary embolism; Z79.01 Long term (current) use of anticoagulants; Z79.899 Other long term (current) drug therapy; Z90.5 Acquired absence of kidney
CPT/HCPCS: 36415; 36600; 71045; 78580; 80048; 80053; 81001; 82375; 82805; 83050; 83605; 83735; 83880; 84443; 84484; 85025; 85027; 85610; 85730; 87040; 87077; 87086; 87088; 87186; 93005; 93306; 96374; 97110; 97116; 97161; 97165; 97530; 97535; 99291; A9270; A9540; C9803; J0456; J0696; J1644; J1940; U0003; U0005